=== PATIENT | female | born 1975 | race Caucasian/White ===

== ENCOUNTER 2016-08-15 20:50 | Emergency (ER) | payer OTHER ==
[~2016-08-15 20:50] MED LIST: DICLOFENAC PO; FLEXERIL PO
[2016-08-15] MEDS ORDERED: MOTRIN400 MG (21:04)
== END 2016-08-15 21:58 | disposition home or self-care (01) ==
LOC: SED 20:50
DX: G89.29 Other chronic pain (principal); Z98.890 Other specified postprocedural states; M54.5 Low back pain
CPT/HCPCS: 96372; 99283; J1030; J1885

== ENCOUNTER 2016-09-14 11:41 | Emergency (ER) | payer OTHER ==
[~2016-09-14 11:41] MED LIST changes: +MOTRIN400 MG
== END 2016-09-14 12:10 | disposition home or self-care (01) ==
LOC: CED 11:41 → SED 11:41
DX: M54.5 Low back pain (principal); G89.29 Other chronic pain
CPT/HCPCS: 96372; 99283; J1885

== ENCOUNTER 2016-11-05 02:06 | Emergency (ER) | payer OTHER ==
[~2016-11-05] VITALS: Ht 167.6 cm; Wt 81.6 kg
[2016-11-05] MEDS ORDERED: NO MEDICATIONS (02:17)
== END 2016-11-05 03:30 | disposition home or self-care (01) ==
LOC: SED 02:06
DX: M54.5 Low back pain (principal); M54.6 Pain in thoracic spine; M54.2 Cervicalgia
CPT/HCPCS: 96372; 99283; J1885